=== PATIENT | male | born 1940 | race Caucasian/White ===

== ENCOUNTER 2018-06-23 11:30 | Outpatient (CLI) | payer MEDICARE, OTHER ==
[2018-06-23] VITALS (21 sets, daily range): BP systolic 86–123; BP diastolic 50–66
[~2018-06-23 11:30] MED LIST: ASPI-1264 PO; LOSA100T57 PO; METO-384 PO; TAMS0.4C32 PO
== END 2018-06-23 23:59 | disposition home or self-care (01) ==
LOC: CARD DIAG 11:30
PROVIDERS: ATTEND Internal Medicine Cardiovascular Disease
DX: R55 Syncope and collapse (principal); I10 Essential (primary) hypertension; Z96.641 Presence of right artificial hip joint; Z87.891 Personal history of nicotine dependence
CPT/HCPCS: 93660

== ENCOUNTER 2020-07-24 11:02 | Day surgery (SDC) | payer MEDICARE, OTHER ==
[~2020-07-24] VITALS: Ht 167.6 cm; Wt 81.6 kg
[2020-07-24] VITALS (10 sets, daily range): BP systolic 131–166; BP diastolic 58–79
[2020-07-24] MEDS ORDERED: sodium bicarbonate (8.4%) inj. 150 ML in dextrose 5%-water 1,000 ML IV ONE (11:35)
[2020-07-24] MEDS ORDERED: diphenhydrAMINE 25mg capsule PO PRN (11:35)
[2020-07-24] MEDS ORDERED: normal saline 1,000 ML IV SCH (11:35)
[2020-07-24] MEDS ORDERED: sodium bicarbonate (8.4%) inj. 75 ML in dextrose 5% water 500ml 500 ML IV SCH (11:40)
[2020-07-24] MEDS ORDERED: WARFARIN PO (12:03)
[2020-07-24] MEDS ORDERED: HYDR12.55 PO (12:03)
[2020-07-24] MEDS ORDERED: VITAMIN D3 PO (12:03)
[2020-07-24] MEDS ORDERED: IRBE300T18 PO (12:03)
[2020-07-24] MEDS ORDERED: FLEC100T2 PO (12:03)
[2020-07-24 12:04] LABS: BASOPHILS # (AUTO) 0.1 X10'3 (0-0.2); BASOPHILS % (AUTO) 0.6 % (0-1); EOSINOPHILS # (AUTO) 0.2 X10'3 (0-0.9); EOSINOPHILS % (AUTO) 1.7 % (0-6); HEMATOCRIT 39.7 % (42.0-52.0); LYMPHOCYTES % (AUTO) 21.7 % (21-51); MEAN CORPUSCULAR HEMOGLOBIN 31.6 PG (27.0-31.0); MEAN CORPUSCULAR HGB CONC 32.7 g/dL (33.0-36.5); MEAN CORPUSCULAR VOLUME 96.5 FL (78-98); MEAN PLATELET VOLUME 8.2 FL (7.4-10.4); MONOCYTES # (AUTO) 0.8 X10'3 (0-0.9); MONOCYTES % (AUTO) 8.6 % (2-12); NEUTROPHILS # (AUTO) 6.1 X10'3 (1.8-7.7); NEUTROPHILS % (AUTO) 67.4 % (42-75); PLATELET COUNT 254 X10'3 (140-440); RED BLOOD COUNT 4.11 X10'6 (4.70-6.10); RED CELL DISTRIBUTION WIDTH 15.1 % (11.5-14.5)
[2020-07-24 12:24] LABS: ALBUMIN 3.3 G/DL (3.4-5.0); ANION GAP 10 (8-16); BLOOD UREA NITROGEN 23 MG/DL (7-18); BUN/CREATININE RATIO 21.7 (5.4-32.0); CALCIUM 8.5 MG/DL (8.5-10.1); CHLORIDE 107 MMOL/L (99-107); CREATININE 1.06 MG/DL (0.60-1.10); GLUCOSE 97 MG/DL (70-104); MAGNESIUM 2.2 MG/DL (1.5-2.4); POTASSIUM 4.1 MMOL/L (3.5-5.1); SODIUM 142 MMOL/L (135-145); TOTAL CARBON DIOXIDE 24.9 MMOL/L (24-32); eGFR 67 ML/MIN
[2020-07-24] MEDS ORDERED: heparin 1,000unit/ml 10ml vial 10 ML ONE (13:27)
[2020-07-24] MEDS ORDERED: LIDOcaine 1% (10mg/ml)w/preservative injection 20ml MDV ONE (13:27)
[2020-07-24] MEDS ORDERED: iohexol 350MG/ML 100ml bottle IV ONE ×2 (13:27→14:42)
[2020-07-24] MEDS ORDERED: fentaNYL/PF 50MCG/1 ML 2ML syringe ONE (13:27)
[2020-07-24] MEDS ORDERED: midazolam 1 mg/ML 2ml injection ONE ×2 (13:27→14:23)
[2020-07-24] MEDS ORDERED: iohexol 350 MG/ML 50ML vial IV ONE (13:27)
[2020-07-24] MEDS ORDERED: nitroGLYCERIN-Tridil 50MG/D5W 250 ML IV ONE (14:48)
[2020-07-24] MEDS ORDERED: ticagrelor 90mg tablet ONE (14:53)
[2020-07-24] MEDS ORDERED: ondansetron/PF 4mg/2ml inj IV PRN (15:20)
[2020-07-24] MEDS ORDERED: HYDROcodone/acetaminophen 5mg/325mg tablet PO PRN (15:20)
[2020-07-24] MEDS ORDERED: normal saline 1000ml 1,000 ML IV SCH (15:20)
[2020-07-24] MEDS ORDERED: HYDROcodone/acetaminophen 10/325mg tab PO PRN (15:20)
[2020-07-24] MEDS ORDERED: proCHLORperazine 10 MG/2 ml inj IV PRN (15:20)
[2020-07-24] MEDS ORDERED: nitroGLYCERIN 0.4mg SUBLingual tab SL ONE (16:32)
== END 2020-07-24 18:35 | disposition home or self-care (01) ==
LOC: SSTAY O 11:02
PROVIDERS: ATTEND Internal Medicine Cardiovascular Disease
DX: R94.39 Abnormal result of other cardiovascular function study (principal); R07.89 Other chest pain; I25.110 Atherosclerotic heart disease of native coronary artery with unstable angina pectoris; E11.9 Type 2 diabetes mellitus without complications; I48.0 Paroxysmal atrial fibrillation; I44.7 Left bundle-branch block, unspecified; I10 Essential (primary) hypertension; N40.0 Benign prostatic hyperplasia without lower urinary tract symptoms; Z87.442 Personal history of urinary calculi; Z86.14 Personal history of Methicillin resistant Staphylococcus aureus infection; Z79.01 Long term (current) use of anticoagulants; Z79.899 Other long term (current) drug therapy; Z96.641 Presence of right artificial hip joint; Z98.890 Other specified postprocedural states
CPT/HCPCS: 36415; 80048; 83735; 85025; 85610; 93005; 93458; 99152; 99153; C1725; C1751; C1760; C1769; C1874; C1894; C9600; J1644; J2001; J2250; J3010; J7030; Q0163; Q9967; A6258; J3490

== ENCOUNTER 2021-12-03 09:27 | Day surgery (SDC) | payer MEDICARE, OTHER ==
[2021-12-03] VITALS (10 sets, daily range): BP systolic 135–166; BP diastolic 64–102
[~2021-12-03] VITALS: Ht 165.1 cm; Wt 77.1 kg
[~2021-12-03 09:27] MED LIST changes: -ASPI-1264 PO; +FLEC100T2 PO; +HYDR12.55 PO; +IRBE300T18 PO; -LOSA100T57 PO; -METO-384 PO; -TAMS0.4C32 PO; +VITAMIN D3 PO; +WARFARIN PO
[2021-12-03] MEDS ORDERED: normal saline 1,000 ML IV SCH (09:55)
[2021-12-03] MEDS ORDERED: diphenhydrAMINE 25mg capsule PO PRN (09:55)
[2021-12-03] MEDS ORDERED: sodium bicarbonate (8.4%) inj. 150 ML in dextrose 5%-water 1,000 ML IV ONE (09:55)
[2021-12-03 10:44] LABS: BASOPHILS % (AUTO) 0.5 % (0-1); EOSINOPHILS # (AUTO) 0.2 X10'3 (0-0.9); HEMATOCRIT 34.4 % (42.0-52.0); HEMOGLOBIN 11.8 g/dl (14.0-17.9); LYMPHOCYTES # (AUTO) 1.7 X10'3 (1.1-4.8); LYMPHOCYTES % (AUTO) 20.5 % (21-51); MEAN CORPUSCULAR HEMOGLOBIN 33.1 PG (27.0-31.0); MEAN CORPUSCULAR HGB CONC 34.4 g/dL (33.0-36.5); MEAN CORPUSCULAR VOLUME 96.1 FL (78-98); MONOCYTES # (AUTO) 0.7 X10'3 (0-0.9); MONOCYTES % (AUTO) 8.8 % (2-12); NEUTROPHILS # (AUTO) 5.8 X10'3 (1.8-7.7); NEUTROPHILS % (AUTO) 68.2 % (42-75); PLATELET COUNT 230 X10'3 (140-440); RED BLOOD COUNT 3.58 X10'6 (4.70-6.10); RED CELL DISTRIBUTION WIDTH 15.1 % (11.5-14.5); WHITE BLOOD COUNT 8.5 X10'3 (4.5-11.0)
[2021-12-03] MEDS ORDERED: midazolam 1 mg/ML 2ml injection ONE ×2 (10:45→11:33)
[2021-12-03] MEDS ORDERED: LIDOcaine 1% 30ml preserv. free vial ONE (10:45)
[2021-12-03] MEDS ORDERED: fentaNYL/PF 50MCG/1 ML 2ML syringe ONE (10:45)
[2021-12-03] MEDS ORDERED: heparin 1,000unit/ml 10ml vial 10 ML ONE (10:45)
[2021-12-03] MEDS ORDERED: iohexol 350MG/ML 100ml bottle IV ONE (10:46)
[2021-12-03 10:48] LABS: ALBUMIN 3.4 G/DL (3.4-5.0); ANION GAP 8 (8-16); BLOOD UREA NITROGEN 27 MG/DL (7-18); BUN/CREATININE RATIO 24.1 (5.4-32.0); CALCIUM 8.6 MG/DL (8.5-10.1); CHLORIDE 105 MMOL/L (99-107); CREATININE 1.12 MG/DL (0.60-1.10); GLUCOSE 95 MG/DL (70-104); MAGNESIUM 1.8 MG/DL (1.5-2.4); POTASSIUM 3.6 MMOL/L (3.5-5.1); SODIUM 140 MMOL/L (135-145); TOTAL CARBON DIOXIDE 26.7 MMOL/L (24-32); eGFR 63 ML/MIN
[2021-12-03] MEDS ORDERED: ATOR40TA71 PO (11:15)
[2021-12-03] MEDS ORDERED: CLOP75TA15 PO (11:15)
[2021-12-03] MEDS ORDERED: nitroGLYCERIN-Tridil 50MG/D5W 250 ML IV ONE (11:20)
[2021-12-03] MEDS ORDERED: verapamil 2.5 mg/ml inj IV ONE (11:21)
[2021-12-03] MEDS ORDERED: ondansetron/PF 4mg/2ml inj IV PRN (13:15)
[2021-12-03] MEDS ORDERED: HYDROcodone/acetaminophen 10/325mg tab PO PRN (13:20)
[2021-12-03] MEDS ORDERED: HYDROcodone/acetaminophen 5mg/325mg tablet PO PRN (13:20)
[2021-12-03] MEDS ORDERED: proCHLORperazine 10 MG/2 ml inj IV PRN (13:20)
== END 2021-12-03 15:30 | disposition home or self-care (01) ==
LOC: SSTAY O 09:27
PROVIDERS: ATTEND Internal Medicine Cardiovascular Disease
DX: I25.118 Atherosclerotic heart disease of native coronary artery with other forms of angina pectoris (principal); I42.0 Dilated cardiomyopathy; I48.0 Paroxysmal atrial fibrillation; I10 Essential (primary) hypertension; E11.9 Type 2 diabetes mellitus without complications; E78.5 Hyperlipidemia, unspecified; Z79.899 Other long term (current) drug therapy; I44.7 Left bundle-branch block, unspecified; Z98.890 Other specified postprocedural states; Z86.14 Personal history of Methicillin resistant Staphylococcus aureus infection; Z87.442 Personal history of urinary calculi; Z96.641 Presence of right artificial hip joint
CPT/HCPCS: 36415; 80048; 83735; 85025; 85610; 93005; 93458; 99152; A6258; C1769; C1894; J1644; J2250; J3010; J3490; J7030; Q9967; 99153; A4620; A5120; A6402